=== PATIENT | female | born 1995 | race Caucasian/White ===

== ENCOUNTER 2021-10-23 21:09 | Emergency (ER) | payer BC ==
[~2021-10-23] VITALS: Ht 165.1 cm; Wt 63.5 kg
[2021-10-23] MEDS ORDERED: CLARITIN (21:49)
[2021-10-24] MEDS ORDERED: MEDROLPACK PO (00:11)
[2021-10-24] MEDS ORDERED: BENADRYL ALLERG25 MG PO (00:11)
== END 2021-10-24 00:16 | disposition home or self-care (01) ==
LOC: ER 21:09
DX: T78.49XA Other allergy, initial encounter (principal); W57.XXXA Bitten or stung by nonvenomous insect and other nonvenomous arthropods, initial encounter